=== PATIENT | female | born 1955 | race Two or more races ===

== ENCOUNTER → 2021-11-28 | Day surgery (SDC) | payer OTHER, MEDICAID ==
[2021-11-27 09:49] LABS: Basophils # (auto) 0 10 ^3/uL (0-0.2); Basophils % (auto) 0.4 % (0.0-2.0); Eosinophils # (auto) 0.3 10 ^3/uL (0-0.8); Eosinophils % (auto) 3.5 % (0.0-7.0); Hematocrit 42.3 % (36.0-46.0); Hemoglobin 14.2 g/dL (12.2-16.2); Lymphocytes # (auto) 2.4 10 ^3/uL (0.4-5.4); Lymphocytes % (auto) 27.7 % (10.0-50.0); Mean Corpuscular Hemoglobin 29.7 pg (28.0-32.0); Mean Corpuscular Hgb Conc. 33.6 g/dL (32.0-36.0); Mean Corpuscular Volume 88.2 fL (80.0-100.0); Monocytes # (auto) 0.6 10 ^3/uL (0-1.3); Neutrophils # (auto) 5.4 10 ^3/uL (1.6-8.6); Neutrophils % (auto) 61.4 % (37.0-80.0); Nucleated Red Blood Cells % 0.2 %; Red Cell Distribution Width 14.4 % (11.8-14.3); White Blood Cell 8.8 10^3/uL (4.4-10.8)
[2021-11-27 10:09] LABS: INR 1.03 (0.9-1.15); Partial Thromboplastin Time 27.1 sec (23.6-33.0)
[2021-11-27 10:58] LABS: Albumin 3.9 g/dL (3.4-5.0); BUN/Creatinine Ratio 12.7; Bilirubin, Total 0.6 mg/dL (0.2-1.0); Calcium 9.1 mg/dL (8.5-10.1); Total Protein 7.3 g/dL (6.4-8.2)
[~2021-11-28] VITALS: Ht 162.6 cm; Wt 108.9 kg
[~2021-11-28] MED LIST: CHOL20007 OR; CITA-73 PO; FAMO-68 PO; NALT50TA27 PO; SODIUM CHLORIDE LOCK 10 ML ONE
[2021-11-28] MEDS: MIDAZOLAM HCL 5 MG/ML-1ML VIAL ONE ×4 (14:33→14:45)
[2021-11-28] MEDS: diphenhdrAMINE HCL 50 MG/1 ML VL ONE ×2 (14:33→14:36)
[2021-11-28] MEDS: fentaNYL CITRATE 100 MCG/2 ML VL ONE ×3 (14:33→14:41)
[2021-11-28 15:35] VITALS: BP 121/85
== END | disposition home or self-care (01) ==
LOC: GI 12:43
PROVIDERS: ATTEND Internal Medicine Gastroenterology
DX: R19.4 Change in bowel habit (principal); K51.40 Inflammatory polyps of colon without complications; K64.8 Other hemorrhoids; F32.A Depression, unspecified; M19.90 Unspecified osteoarthritis, unspecified site; Z90.710 Acquired absence of both cervix and uterus; Z20.822 Contact with and (suspected) exposure to COVID-19; Z87.891 Personal history of nicotine dependence
CPT/HCPCS: 36415; 45385; 80053; 85025; 85610; 85730; 88305; J1200; J2250; J3010; J7030; U0003; G0500